=== PATIENT | female | born 1985 | race Asian ===

== ENCOUNTER 2018-11-12 12:40 | Day surgery (SDC) | payer BC, OTHER ==
[~2018-11-12] VITALS: Ht 149.9 cm; Wt 41.0 kg
[~2018-11-12 12:40] MED LIST: DOCU-131 PO; FERR500P8 PO; IBUP-1222 PO; OXYC-302 PO; PREN-1 PO
[2018-11-12] MEDS ORDERED: LACTATED RINGERS 1,000 ML IV SCH (12:55)
[2018-11-12] MEDS ORDERED: PREN-53 PO (12:59)
[2018-11-12] MEDS ORDERED: TYLENOL PO (12:59)
[2018-11-12 13:04] VITALS: BP 116/75
[2018-11-12 13:24] LABS: MEAN CORPUSCULAR HEMOGLOBIN 21.6 pg (27.0-34.8); MEAN CORPUSCULAR HGB CONC 32.1 g/dL (32.4-35.8); MEAN CORPUSCULAR VOLUME 67.4 fL (80-100); MEAN PLATELET VOLUME 6.9 fL (7.4-10.4); PLATELET COUNT 401 x10^3/uL (130-400); RED BLOOD COUNT 5.59 x10^6/uL (3.82-5.3); RED CELL DISTRIBUTION WIDTH 15.4 % (9.6-15.2)
[2018-11-12] MEDS ORDERED: ONDANSETRON 2MG/ML, 2ML IVPush PRN (14:00)
[2018-11-12] MEDS ORDERED: OXYcodone/APAP 5/325MG TABLET PO PRN (14:00)
[2018-11-12 14:23] LABS: BASOPHILS # (AUTO) 0.01 x10^3/uL (0-0.1); BASOPHILS % (AUTO) 0 % (0-1); EOSINOPHILS # (AUTO) 0.09 x10^3/uL (0-0.4); EOSINOPHILS % (AUTO) 1 % (1-7); LYMPHOCYTES # (AUTO) 1.19 x10^3/uL (1-3.4); LYMPHOCYTES % (AUTO) 8 % (22-44); MD MORPH REVIEW ONLY; MONOCYTES # (AUTO) 0.23 x10^3/uL (0.2-0.8); MONOCYTES % (AUTO) 2 % (2-9); NEUTROPHILS # (AUTO) 14.08 x10^3/uL (1.8-6.8); NEUTROPHILS % (AUTO) 90 % (42-75)
[2018-11-12 14:24] LABS: ANISOCYTOSIS 1+; MICROCYTOSIS 1+; POLYCHROMASIA 1+
[2018-11-12 14:25] LABS: <PLATELET ESTIMATE> INCREASED; <PLT MORPHOLOGY> NORMAL PLT MORPH
[2018-11-12] MEDS ORDERED: KETOROLAC 30 MG/1 ML ONE (14:50)
[2018-11-12] MEDS ORDERED: MIDAZOLAM 1 MG/ML, 2ML ONE (14:51)
[2018-11-12] MEDS ORDERED: FENTANYL PF 100 MCG/2ML ONE (14:51)
[2018-11-12] MEDS ORDERED: METHYLERGONOVINE 0.2 MG/ML IM ONE (15:04)
[2018-11-12] MEDS ORDERED: ONDANSETRON 2MG/ML, 2ML ONE (15:10)
[2018-11-12] MEDS ORDERED: PROPOFOL 10 MG/ML, 20ML ONE (15:10)
[2018-11-12] MEDS ORDERED: CEFAZOLIN 1,000 MG ONE (15:10)
[2018-11-12] MEDS ORDERED: DEXAMETHASONE 4 MG/ML, 1ML ONE (15:10)
[2018-11-12] MEDS ORDERED: ACETAMINOPHEN 325 MG TABLET PO PRN (15:30)
[2018-11-12] MEDS ORDERED: OXYcodone 5 MG/5 ML ORAL.SOL UDC PO PRN (15:30)
[2018-11-12] MEDS ORDERED: MIDAZOLAM 1 MG/ML, 2ML IV PRN (15:30)
[2018-11-12] MEDS ORDERED: SCOPOLAMINE PATCH, 1.5MG PATCH.TD72 TD PRN (15:30)
[2018-11-12] MEDS ORDERED: FENTANYL PF 100 MCG/2ML IV PRN (15:30)
[2018-11-12] MEDS ORDERED: PROMETHAZINE 25 MG/ML, 1ML IV PRN (15:30)
[2018-11-12] MEDS ORDERED: OXYcodone 5 MG/5 ML ORAL.SOL UDC ONE (15:30)
[2018-11-12] MEDS ORDERED: ALBUTEROL/IPRATROPIUM 2.5MG/0.5MG, 3 ML NPPB PRN (15:30)
[2018-11-12] MEDS ORDERED: ONDANSETRON 2MG/ML, 2ML IV PRN (15:30)
[2018-11-12] MEDS ORDERED: MEPERIDINE/PF 25MG/0.5ML IVPush PRN (15:30)
[2018-11-12] MEDS ORDERED: IBUPROFEN 600 MG TABLET PO SCH (16:00)
== END 2018-11-12 17:22 | disposition home or self-care (01) ==
LOC: OUT 12:40 → ORIP 14:30 → UNDOADMOB 14:30 → EDSTATUS 14:30 → OUT 17:22
PROVIDERS: ATTEND Obstetrics & Gynecology
DX: O03.4 Incomplete spontaneous abortion without complication (principal); Z3A.08 8 weeks gestation of pregnancy
CPT/HCPCS: 36415; 59812; 85025; 86850; 86900; 88305; J0690; J1100; J1885; J2210; J2250; J2405; J2704; J3010